=== PATIENT | male | born 2000 | race Caucasian/White ===

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

== ENCOUNTER 2019-06-21 15:16 | Emergency (ER) | payer OTHER ==
[2019-06-21] MEDS ORDERED: OXYCODONE-ACETAMINOPHEN 5-325 MG TABLET PO ONE (16:19)
--- NOTE | 2019-06-21 16:19 | ER Document Report ---
ED Medical Screen (RME) - General Chief Complaint: Abscess Stated Complaint: ABSCESS Time Seen by Provider: 06/21/19 16:15 Mode of Arrival: Ambulatory Information source: Patient Notes: 19-year-old male presented to ED for complaint of an abscess in his groin area behind his scrotum. He states it was a size of a pimple yesterday and his boss told him to get some salve and put on it and now it is signs of a golf ball. He states it is very tender to palpation. Patient is alert oriented respirations regular nonlabored speaking in full sentences blood urine patient states he went over to an urgent care and when they went to put the solution on the area to try the number to I&D at he was not able to take the discomfort. I have greeted and performed a rapid initial assessment of this patient. A comprehensive ED assessment and evaluation of the patient, analysis of test results and completion of medical decision making process will be conducted by an additional ED providers. TRAVEL OUTSIDE OF THE [place] IN LAST 30 DAYS: No - Related Data Allergies/Adverse Reactions: No Known Allergies Allergy (Verified 06/21/19 16:15) Past Medical History Renal/ Medical History: Denies: Hx Peritoneal Dialysis - Immunizations Immunizations up to date: Yes Hx Diphtheria, Pertussis, Tetanus Vaccination: Yes Physical Exam - Vital signs Vitals: Temp Pulse Resp BP Pulse Ox 98.5 F 55 L 18 134/61 H 100 06/21/19 15:38 06/21/19 15:38 06/21/19 15:38 06/21/19 15:38 06/21/19 15:38 Course - Vital Signs Vital signs: Temp Pulse Resp BP Pulse Ox 98.5 F 55 L 18 134/61 H 100 06/21/19 15:38 06/21/19 15:38 06/21/19 15:38 06/21/19 15:38 06/21/19 15:38
[2019-06-21 16:55] LABS: ABSOLUTE EOSINOPHILS # (AUTO) 0.1 10^3/uL (0.0-0.6); ABSOLUTE LYMPHOCYTES (AUTO) 2.3 10^3/uL (0.5-4.7); ABSOLUTE NEUT (AUTO) 8.9 10^3/uL (1.7-8.2); BASOPHILS % (AUTO) 0.2 % (0-2); EOSINOPHILS % (AUTO) 0.8 % (0-6); HEMATOCRIT 42.5 % (37.9-51.0); HEMOGLOBIN 14.1 g/dL (13.5-17.0); LYMPHOCYTES % (AUTO) 18.9 % (13-45); MEAN CORPUSCULAR HEMOGLOBIN 31.3 pg (27.0-33.4); MEAN CORPUSCULAR VOLUME 95 fl (80-97); MONOCYTES % (AUTO) 8.2 % (3-13); PLATELET COUNT 202 10^3/uL (150-450); RED BLOOD COUNT 4.49 10^6/uL (4.35-5.55); SEGMENTED NEUTROPHILS % (AUTO) 71.9 % (42-78); TOTAL CELLS COUNTED % (AUTO) 100 %; WHITE BLOOD COUNT 12.3 10^3/uL (4.0-10.5)
[2019-06-21 17:01] LABS: APPEARANCE,URINE SLIGHTLY-CLOUDY; BILIRUBIN,URINE NEGATIVE (NEGATIVE); COLOR,URINE YELLOW; GLUCOSE, URINE NEGATIVE (NEGATIVE); KETONES,URINE NEGATIVE (NEGATIVE); LEUKOCYTE ESTERASE,URINE NEGATIVE (NEGATIVE); NITRITE,URINE NEGATIVE (NEGATIVE); PROTEIN,URINE NEGATIVE (NEGATIVE); URINE SPECIFIC GRAVITY 1.017; UROBILINOGEN,URINE NEGATIVE mg/dL (<2.0)
[2019-06-21 17:16] LABS: ALBUMIN 4.5 g/dL (3.5-5.0); ALKALINE PHOSPHATASE 66 U/L (38-126); ANION GAP 10 (5-19); ASPARTATE AMINO TRANSFERASE 17 U/L (17-59); BILIRUBIN,DIRECT 0.1 mg/dL (0.0-0.4); BILIRUBIN,TOTAL 0.4 mg/dL (0.2-1.3); BLOOD UREA NITROGEN 15 mg/dL (7-20); CARBON DIOXIDE 31 mmol/L (22-30); CHLORIDE 101 mmol/L (98-107); GLUCOSE 78 mg/dL (75-110); POTASSIUM 4.4 mmol/L (3.6-5.0); TOTAL PROTEIN 7.7 g/dL (6.3-8.2)
--- NOTE | 2019-06-21 19:33 | ER Document Report ---
HPI - HPI Time Seen by Provider: 06/21/19 16:15 Pain Level: 5 Notes: This is an otherwise healthy 19-year-old male presenting with an abscess to his perineum. Patient reports abscess is been present for approximately 2 days. Patient denies any fevers. He does denies any drainage from the area. He states he went to an urgent care with a trying to drain it unsuccessfully due to his intolerance for the procedure. - REPRODUCTIVE Reproductive: DENIES: : Past Medical History - General Information source: Patient - Social History Smoking Status: Never Smoker Chew tobacco use (# tins/day): No Frequency of alcohol use: None Drug Abuse: None Family History: Reviewed & Not Pertinent Patient has suicidal ideation: No Patient has homicidal ideation: No - Medical History Medical History: Negative Renal/ Medical History: Denies: Hx Peritoneal Dialysis Surgical Hx: Negative - Immunizations Immunizations up to date: Yes Hx Diphtheria, Pertussis, Tetanus Vaccination: Yes Vertical Provider Document - CONSTITUTIONAL Notes: PHYSICAL EXAMINATION: GENERAL: Well-appearing, well-nourished and in no acute distress. HEAD: Atraumatic, normocephalic. EYES: Pupils equal round extraocular movements intact, conjunctiva are normal. ENT: Nares patent NECK: Normal range of motion LUNGS: No respiratory distress Musculoskeletal: Normal range of motion NEUROLOGICAL: Normal speech, normal gait. PSYCH: Normal mood, normal affect. SKIN: Erythematous indurated area noted to perineum on the left side just below the scrotum. Mild induration with fluctuance noted. - INFECTION CONTROL TRAVEL OUTSIDE OF THE [place] IN LAST 30 DAYS: No Course - Re-evaluation Re-evalutation: Dr. Bui, general surgery happened to be in the department evaluating another patient. He graciously agreed to take a look at this patient due to this patient's intolerance of the I&D procedure at the urgent care. He did agree to do an I&D at the bedside, see his procedure note. Patient tolerated moderately well. ED return precautions were discussed. - Vital Signs Vital signs: Temp Pulse Resp BP Pulse Ox 98.5 F 55 L 18 134/61 H 100 06/21/19 15:38 06/21/19 15:38 06/21/19 15:38 06/21/19 15:38 06/21/19 15:38 - Laboratory Result Diagrams: 06/21/19 16:35 06/21/19 16:35 Laboratory results interpreted by me: 06/21/19 06/21/19 16:35 16:35 WBC 12.3 H Absolute Neuts (auto) 8.9 H Carbon Dioxide 31 H Discharge - Discharge Clinical Impression: Abscess of groin Condition: Stable Disposition: HOME, SELF-CARE Additional Instructions: Please change the dressing tomorrow night. Apply 4 x 4's and a gauze pad to the area. Apply triple antibiotic ointment to directly to the opening twice daily. Take medications as prescribed. Follow-up with the surgical clinic in 2 weeks for a follow-up, their phone number is below. Return to the emergency department with any new or worsening symptoms such as development of fever, worsening pain, swelling or any other concern. Prescriptions: Sulfamethoxazole/Trimethoprim [Bactrim Ds Tablet] 1 tab PO BID #14 tablet Tramadol HCl [Ultram] 50 mg PO Q4H #10 tablet Forms: Return to Work Referrals: MARILEE EDUARDO MD [[employer]] - Follow up as needed
[2019-06-21] MEDS ORDERED: LIDOCAINE 1% INJ-PF (10 MG/ML) 30 ML SDV INFIL ONE (20:19)
[2019-06-21] MEDS ORDERED: LIDOCAINE 1% INJ-PF (10 MG/ML) 30 ML SDV ONE (20:20)
--- NOTE | 2019-06-21 20:40 | PDOC CONSULTATION ---
Consultation Consult Date: 06/21/19 Provider Consulted: MARILEE EDUARDO Consult reason:: perineal abscess History of Present Illness History of Present Illness: MARY ANN CLARK is a 19 year old male with an area of redness and terness at the base of the scrotum as per abscess. Social History Smoking Status: Unknown if Ever Smoked Electronic Cigarette use?: No Family History Family History: Reviewed & Not Pertinent Parental Family History Reviewed: No Children Family History Reviewed: No Sibling(s) Family History Reviewed.: No Medication/Allergy Home Medications: Sulfamethoxazole/Trimethoprim [Bactrim Ds Tablet] 1 tab PO BID #14 tablet 06/21/19 Tramadol HCl [Ultram] 50 mg PO Q4H #10 tablet 06/21/19 Allergies/Adverse Reactions: No Known Allergies Allergy (Verified 06/21/19 16:15) Physical Exam Vital Signs: Temp Pulse Resp BP Pulse Ox 98.5 F 55 L 18 134/61 H 100 06/21/19 15:38 06/21/19 15:38 06/21/19 15:38 06/21/19 15:38 06/21/19 15:38 Intake & Output 06/20/19 06/21/19 06/22/19 06:59 06:59 06:59 Weight 70.3 kg General appearance: PRESENT: no acute distress Head exam: PRESENT: atraumatic Eye exam: PRESENT: EOMI Mouth exam: PRESENT: neck supple Respiratory exam: PRESENT: clear to auscultation alicia Cardiovascular exam: PRESENT: RRR GI/Abdominal exam: PRESENT: soft Gentrourinary exam: PRESENT: other - area 3 cm diameter with redness, swelling, pain atr base of scrotum Results Laboratory Results: 06/21/19 16:35 06/21/19 16:35 06/21/19 06/21/19 06/21/19 16:35 16:35 16:35 WBC 12.3 H RBC 4.49 Hgb 14.1 Hct 42.5 MCV 95 MCH 31.3 MCHC 33.0 RDW 13.0 Plt Count 202 Seg Neutrophils % 71.9 Sodium 141.5 Potassium 4.4 Chloride 101 Carbon Dioxide 31 H Anion Gap 10 BUN 15 Creatinine 0.96 Est GFR ( Amer) > 60 Glucose 78 Calcium 10.0 Total Bilirubin 0.4 AST 17 Alkaline Phosphatase 66 Total Protein 7.7 Albumin 4.5 Urine Color YELLOW Urine Appearance SLIGHTLY-CLOUDY Urine pH 7.0 Ur Specific [place] 1.017 Urine Protein NEGATIVE Urine Glucose (UA) NEGATIVE Urine Ketones NEGATIVE Urine Blood NEGATIVE Urine Nitrite NEGATIVE Ur Leukocyte Esterase NEGATIVE Urine WBC (Auto) 2 Urine RBC (Auto) 0 Assessment & Plan - Plan Summary Plan Summary: A/ perineal skin abscess P/ I&D in ED. Replace bandages tomorrow and BID w/ topical triple abx ointment Bactrim DS 1 po BID x 7 days F/u surgery clinic in 2 weeks
[2019-06-21] MEDS ORDERED: TRAMADOL HCL 50 MG TABLET PO ONE (20:43)
[2019-06-21] MEDS ORDERED: SULFAMETHOXAZOLE/TRIMETHOPRIM 800-160 MG TABLET PO ONE (20:43)
--- NOTE | 2019-06-21 20:43 | Operative Report ---
Operative Report DATE OF SURGERY: 06/21/19 PREOPERATIVE DIAGNOSIS: abscess 3 cm perineal area POSTOPERATIVE DIAGNOSIS: same OPERATION: I&D perineal abscess SURGEON: MARILEE EDUARDO ANESTHESIA: Local - 20 mL lidocaine TISSUE REMOVED OR ALTERED: n/a ESTIMATED BLOOD LOSS: 5 mL INTRAOPERATIVE FINDINGS: abscess superficial perineum PROCEDURE: Area prepped and draped and infiltrated w/ Lidocaine. Cruciate incision made w/ # 11 blade. Small pus obtained, cx sent, area cleaned, packed w/ antibiotic ointment and 4x4. Patient d/c to home.
[2019-06-21 20:57] VITALS: BP 141/77
== END 2019-06-21 20:59 | disposition home or self-care (01) ==
LOC: ER 15:16
PROC: 0H9AXZZ Drainage of Inguinal Skin, External Approach (ICD-10-PCS; principal; 2019-06-21)
DX: L02.215 Cutaneous abscess of perineum (principal)
CPT/HCPCS: 36415; 87070; 87205; 85025; 87075; 80053; 81001; 10060; J3490; 99283

== ENCOUNTER 2019-06-22 20:45 | Emergency (ER) | payer OTHER ==
[2019-06-22 21:00] VITALS: BP 151/69
[2019-06-22] MEDS ORDERED: IBUPROFEN 800 MG TABLET PO ONE (21:20)
--- NOTE | 2019-06-22 21:20 | ER Document Report ---
ED Medical Screen (RME) - General Chief Complaint: Leg Pain Stated Complaint: PAIN IN CYST Time Seen by Provider: 06/22/19 21:14 Mode of Arrival: Ambulatory Information source: Patient Notes: 19-year-old male presented to ED for recheck of surgical I&D of abscess. He states his I&D behind his scrotum was I&D last night by the surgeon and a dressing was applied. The states that she was told to remove the dressing in 24 hours and redress it. She states she is not able to remove the dressing. Patient is here now to have the wound reassessed to find out why they are not able to remove the dressing. Patient states he does not want to go through a lot of pain again tonight like he did last night but he does want the area reassessed. I have greeted and performed a rapid initial assessment of this patient. A comprehensive ED assessment and evaluation of the patient, analysis of test results and completion of medical decision making process will be conducted by an additional ED providers. TRAVEL OUTSIDE OF THE [place] IN LAST 30 DAYS: No - Related Data Allergies/Adverse Reactions: No Known Allergies Allergy (Verified 06/21/19 16:15) Past Medical History Renal/ Medical History: Denies: Hx Peritoneal Dialysis - Immunizations Immunizations up to date: Yes Hx Diphtheria, Pertussis, Tetanus Vaccination: Yes Physical Exam - Vital signs Vitals: Temp Pulse Resp BP Pulse Ox 98.6 F 63 16 151/69 H 99 06/22/19 20:59 06/22/19 20:59 06/22/19 20:59 06/22/19 20:59 06/22/19 20:59 Course - Vital Signs Vital signs: Temp Pulse Resp BP Pulse Ox 98.6 F 63 16 151/69 H 99 06/22/19 20:59 06/22/19 20:59 06/22/19 20:59 06/22/19 20:59 06/22/19 20:59
--- NOTE | 2019-06-22 21:41 | ER Document Report ---
ED General - General Chief Complaint: Post Surgical Pain Stated Complaint: PAIN IN CYST Time Seen by Provider: 06/22/19 21:14 Mode of Arrival: Ambulatory Notes: Patient is a 19-year-old male that presents to the emergency department for chief complaint of post I&D problem. Patient states that he had an I&D of an abscess in his groin performed yesterday, had a dressing placed, and he states that the gauze got "stuck" in the area where it was cut open, and he was been afraid to pull it out he was not sure if it was packed or not. He has had some discomfort to the area, he has been taking antibiotics and tramadol with some relief of his pain. Denies any significant drainage over the course of today. Denies having any fevers, chills, night sweats. Past Medical History: Denies chronic medical conditions Past Surgical History: I&D Social History: Denies current tobacco, alcohol or drug use. Family History: Reviewed and noncontributory for presenting illness Allergies: Reviewed, see documented allergy list. REVIEW OF SYSTEMS: Other than noted above, the 12 point review of systems was reviewed with the patient and were negative, all pertinent findings are included in the HPI. PHYSICAL EXAMINATION: Vital signs reviewed, nursing noted reviewed. GENERAL: Well-appearing, well-nourished and in no acute distress. HEAD: Atraumatic, normocephalic. EYES: Eyes appear normal, sclera anicteric, conjunctiva are normal. ENT: Moist mucous membranes. NECK: Normal range of motion, supple without lymphadenopathy LUNGS: Breath sounds clear to auscultation bilaterally and equal. No wheezes rales or rhonchi. HEART: Regular rate and rhythm without murmurs EXTREMITIES: Nontender, good range of motion, no pitting or edema. NEUROLOGICAL: No focal neurological deficits. Moves all extremities spontan eously Motor and sensory grossly intact on exam. PSYCH: Normal mood, normal affect. SKIN: Warm, Dry, normal turgor, patient noted to have stellate I&D incision, in the perineum, no active drainage at this time, gauze was removed, no active bleeding, appears to be healing well. TRAVEL OUTSIDE OF THE [place] IN LAST 30 DAYS: No - Related Data Allergies/Adverse Reactions: No Known Allergies Allergy (Verified 06/21/19 16:15) Past Medical History - General Information source: Patient - Social History Smoking Status: Never Smoker Family History: Reviewed & Not Pertinent Patient has suicidal ideation: No Patient has homicidal ideation: No Renal/ Medical History: Denies: Hx Peritoneal Dialysis - Immunizations Immunizations up to date: Yes Hx Diphtheria, Pertussis, Tetanus Vaccination: Yes Physical Exam - Vital signs Vitals: Temp Pulse Resp BP Pulse Ox 98.6 F 63 16 151/69 H 99 06/22/19 20:59 06/22/19 20:59 06/22/19 20:59 06/22/19 20:59 06/22/19 20:59 Course - Re-evaluation Re-evalutation: Patient seen and examined, vital signs reviewed, patient appeared well on exam, just slightly uncomfortable, his dressing was removed, and change in the ED, no concern for worsening of abscess, no active drainage at this time. Abscess incision is still open at this time. Patient was advised on anticipatory guidance, and to continue taking antibiotics, and to follow-up with primary care, if his symptoms worsen, develop fever, to return to the emergency department, patient was agreeable with this plan of care and ultimately discharged home. - Vital Signs Vital signs: Temp Pulse Resp BP Pulse Ox 98.6 F 63 16 151/69 H 99 06/22/19 20:59 06/22/19 20:59 06/22/19 20:59 06/22/19 20:59 06/22/19 20:59 Discharge - Discharge Clinical Impression: Perineal abscess, superficial Condition: Stable Disposition: HOME, SELF-CARE Instructions: Post Incision and Drainage Additional Instructions: Keep the area clean, wash with soap and water, avoid contamination when wiping when having a bowel movement. Shower on a regular basis. The wound will likely completely heal in 10 to 14 days. If you develop fever, or feel that its getting larger, or more red or swollen, please return to the emergency department to be reevaluated. Please finish the course of antibiotics that have been prescribed. Referrals: Wound Care [Provider Group] - Follow up as needed
== END 2019-06-22 21:54 | disposition home or self-care (01) ==
LOC: ER 20:45
DX: K61.0 Anal abscess (principal); Z98.890 Other specified postprocedural states
CPT/HCPCS: 99282